=== PATIENT | female | born 1930 | race Caucasian/White ===

== ENCOUNTER 2020-01-16 18:53 | Emergency (ER) | payer MEDICARE ==
[2020-01-16] MEDS ORDERED: NS 0.9% 1000 ML** 1,000 ML IV ONE (18:54)
--- NOTE | 2020-01-16 19:05 | ED ---
Neurological HPI - HPI Summary HPI Summary: 89 y/o female presented to [facility] for a gildardo mercer called after a witnessed fall in her bathroom at 1805 with no LOC. Last known well at 1805. Pt shows right sided facial droop, right sided paralysis, and aphasia. Baseline A&Ox3. Gildardo mercer was called in the field by EMS. Per EMS, blood Glc was 97 en route to the ED. Pt arrived in the ED at 1853. Hx of HTN noted. Pt takes daily aspirin but did not take one today. Pt also takes quinapril, omeprazole, levothyroxine, and diltiazem. NIH 18. Pt is a level 5 caveat secondary to aphasia. - History of Current Complaint Stated Complaint: GILDARDO MERCER Time Seen by Provider: 01/16/20 18:54 Hx Obtained From: EMS Onset/Duration: Sudden Onset, Started minutes ago, Still Present Timing: Constant Neurological Deficit Location: Generalized - right side Character: Weak - right side, Other: - right side facial droop, aphasia Syncope Context: Witnessed Aggravating: Nothing Alleviating: Nothing - Allergy/Home Medications Allergies/Adverse Reactions: Allergies Allergy/AdvReac Type Severity Reaction Status Date / Time No Known Allergies Allergy Verified 02/21/15 17:38 Home Medications: Home Medications Unobtainable 01/16/20 [History Confirmed 01/16/20] PMH/Surg Hx/FS Hx/Imm Hx Cardiovascular History: Reports: Hx Hypertension Sensory History: Denies: Hx Legally Blind, Hx Deafness Opthamlomology History: Denies: Hx Legally Blind EENT History: Denies: Hx Deafness - Social History Occupation: Unemployed Lives: With Family Alcohol Use: None Substance Use Type: Reports: None Smoking Status (MU): Never Smoked Tobacco - Additional Comments History Additional Comments: Pt is a level 5 caveat secondary to aphasia. Review of Systems - ROS Summary Review of Systems Summary: Pt is a level 5 caveat secondary to aphasia. Neurological/Mental Status: Other - aphasia, right sided facial droop Positive: Weakness - right side All Other Systems Reviewed And Are Negative: No Physical Exam - Summary Physical Exam Summary: Constitutional: Well-developed, Well-nourished, Alert. (-) Distressed Skin: Warm, Dry HENT: Normocephalic; Atraumatic Eyes: Conjunctiva normal Neck: Musculoskeletal ROM normal neck. (-) JVD, (-) Nuchal rigidity Cardio: irregular, rate normal, Heart sounds normal; Intact distal pulses; Radial pulses are 2+ and symmetric. (-) Murmur Pulmonary/Chest wall: Effort normal. (-) Respiratory distress, (-) Wheezes, (-) Rales Abd: Soft. (-) Tenderness, (-) Distension, (-) Guarding, (-) Rebound Musculoskeletal: (-) Edema Neuro: Alert, PERRL, R sided facial droop, L gaze preference, severe dysarthria and aphasia, strength 0/5 R UE/LE, 5/5 L UE/LE Psych: deferred Triage Information Reviewed: Yes Vital Signs Reviewed: Yes Procedures - Sedation Patient Received Moderate/Deep Sedation with Procedure: No Diagnostics - Laboratory Result Diagrams: 01/16/20 19:17 01/16/20 19:17 Lab Statement: Any lab studies that have been ordered have been reviewed, and results considered in the medical decision making process. - Radiology CXR Radiology Interpretation Completed By: ED Physician Summary of Radiographic Findings: No acute process. This x-ray was reviewed and interpreted by the ED physician pending official read. - CT head CT Interpretation Completed By: Radiologist Summary of CT Findings: IMPRESSION: No acute intracranial abnormality. Chronic microvascular ischemic changes. ASSESSMENT: ASPECTS ([place] Stroke Program Early CT Score) is 10. This report was reviewed by the ED physician. 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 This report was reviewed by the ED physician. - EKG 2013 Cardiac Rate: NL EKG Rhythm: Atrial Fibrillation Summary of EKG Findings: An EKG at 2013 reveals afib at 87bpm, nml axis, nml intervals. No STEMI. No acute changes. ED physician has reviewed and interpreted this EKG. NIH Scale - NIH Scale Level of Consciousness: Alert/Keenly Responsive Ask Patient the Month and His/Her Age: Neither Correct/Aphasic Ask Pt to Open/Close Eyes and Diesel Mechanic Apprentice/Release Non-Paretic Hand: One Correctly Best Gaze (Only Horizontal Eye Movement): Forced Deviation Visual Field Testing: No Visual Loss Facial Paresis-Pt to Smile & Close Eyes or Grimace Symmetry: Partial Paralysis Motor Function - Right Arm: No Effort Against Paoli Motor Function - Left Arm: No Drift-Holds 10 Seconds Motor Function - Right Leg: No Effort Against Paoli Motor Function - Left Leg: No Drift-Holds 10 Seconds Limb Ataxia-Must be out of Proportion to Weakness Present: Absent Sensory (Use Pinprick to Test Arms/Legs/Trunk/Face): Normal Best Language (Describe Picture, Name Items): Severe Aphasia Dysarthria (Read Several Words): Unintelligible or Mute Extinction and Inattention: Inattention Total Score: 18 Re-Evaluation - Re-Evaluation First Eval Re-Evaluation Time: 19:23 Comment: Daughter confirmed hx prior was normal. Pt is on ASA daily but did not take one today. No known contraindications for TPA. Risks and benefits of TPA were discussed with daughter. Daughter would like TPA and is in agreement with transfer. Course/Dx - Course Course Of Treatment: 89 y/o F w hx hypothyroidism, HTN p/w R sided paralysis facial droop and aphasia. - Last known normal 1804, confirmed with daughter Azeb. On arrival, NIH stroke scale 18. CT head negative, CTA shows M1 occlusion. TPA ordered at 1926 and administered at 1945. [facility] consulted, recommend transfer for LVO. Daughter updated and aware of transfer. - Diagnoses Provider Diagnoses: Facial paralysis on right side, Left middle cerebral artery stroke, Afib During the Visit The Following Alert/Code Occurred: Code Mercer - Physician Notifications Discussed Care Of Patient With: Brian Hanson Time Discussed With Above Provider: 18:55 Instructed by Provider To: Other - At 185 Dr. Silva called [facility] for consult. At 1900 the transfer center informed Dr. Silva they will call back for consult. At 1937 the ED paged the transfer center again. At 1943 Dr. Hanson at [facility] accepted the pt for transfer. At 1957 [facility] called to go over the case. - Critical Care Time Critical Care Time: 30-74 min - Upon my evaluation, this patient had a high probability of imminent or life-threatening deterioration due to stroke which required my direct attention, intervention, and personal management. I have personally provided 60 minutes of critical care time exclusive of time spent on separately billable procedures. Time includes review of laboratory data, radiology results, discussion with consultants, and monitoring for potential decompensation. Interventions were performed as documented above. Discharge ED - Sign-Out/Discharge Documenting (check all that apply): Patient Departure - Discharge Plan Condition: Stable Disposition: TRANS HIGHER LVL OF CARE FAC Referrals: Gaby Evans MD [Primary Care Provider] - - Billing Disposition and Condition Condition: STABLE Disposition: Trans Higher Lvl of Care Fac - Attestation Statements Document Initiated by Sheba: Yes Documenting Scribe: Ho Cedeño Provider For Whom Sheba is Documenting (Include Credential): Jamal Silva MD Scribe Attestation: Ho Pappas, chiaraibed for Jamal Silva MD on 01/16/20 at 2019. Scribe Documentation Reviewed: Yes Provider Attestation: The documentation as recorded by the Ho campbell accurately reflects the service I personally performed and the decisions made by Jamal oliver MD Status of Scribhiwot Document: Viewed
[2020-01-16] MEDS ORDERED: Iodixanol* (CONTRAST) 320 MG/ML 100 ML SDV IV ONE (19:07)
--- OUTSIDE RECORDS SUMMARY | 2020-01-16 19:08 | XMS REPORT | Continuity of Care Document ---
:1930 External Reference #:[id number] Author Name Sera Thomas M.D. (transmitted by agent of provider Ashely Stephen) Address [address] [place] [address] Care Team Providers Name Role Phone Gaby Evans MD - Family Care Team Information Piano Mover Medicine Problems Active Problems Provider Date Localized, primary osteoarthritis Sera Thomas M.D. Onset: 03/19/2019 Social History Type Date Description Comments Sex Unknown ETOH Use Never used alcohol Tobacco Use Start: Unknown Patient has never smoked Smoking Status Reviewed: 12/15/19 Patient has never smoked Exercise Type/Frequency Does not exercise Allergies, Adverse Reactions, Alerts Active Allergies Reaction Severity Comments Date Ibuprofen diarrhea 03/19/2019 Naproxen diarrhea 03/19/2019 Medications Active Medications SIG Qnty Indications Ordering Date Provider Luiz daniels 1units Sera Thomas, 12/15/2019 [facility] 62" 135lbs M.D. severe left hip OA, severe b/L knee OA Compression Stockings 1units M25.561 Sera Thomas, 08/04/2019 M.D. [facility] Voltaren use 3 times a day 100gm M25.561 Sera Thomas, 03/19/2019 1% Gel as needed for M.D. pain Levothyroxine Sodium Take 1 Tablet By Unknown Mouth Every Day 50mcg Tablets Before Breakfast Quinapril HCL Take 1 Tablet By Unknown 40mg Mouth Every Day Tablets Diltiazem HCL ER Take 1 Tablet By Unknown Coated Beads Mouth Every Day 360mg Tablets ER 24HR Pravastatin Sodium Take 1 Tablet By Unknown 10mg Mouth Every Day Tablets AT 7Am On An Empty Stomach Aspirin Adult as needed Unknown 325mg Tablets Echinacea Goldenseal 240 mg 1 daily Unknown Plus Capsules Turmeric qd Unknown Powder Vitamin B Complex 1 by mouth every Unknown day Tablets Medications Administered in Office Medication SIG Qnty Indications Ordering Provider Date Depomedrol 40MG Sera Thomas M.D. 12/15/2019 Injection Synvisc Or Synvisc-One Injection 1 Sera Thomas M.D. 08/04/2019 MG Injection Synvisc Or Synvisc-One Injection 1 Sera Thomas M.D. 08/04/2019 MG Injection Synvisc Or Synvisc-One Injection 1 Sera hTomas M.D. 07/26/2019 MG Injection Synvisc Or Synvisc-One Injection 1 Sera Thomas M.D. 07/26/2019 MG Injection Synvisc Or Synvisc-One Injection 1 Sera Thomas M.D. 07/19/2019 MG Injection Synvisc Or Synvisc-One Injection 1 Sera Thomas M.D. 07/19/2019 MG Injection No Injection Sera Thomas M.D. 06/25/2019 Injection Depomedrol 40MG Sera Thomas M.D. 06/25/2019 Injection Depomedrol 40MG Sera Thomas M.D. 03/19/2019 Injection Depomedrol 40MG Sera Thomas M.D. 03/19/2019 Injection Immunizations Description No Information Available Vital Signs Date Vital Result Comment 12/15/2019 10:25am Height 62 inches 5'2" Weight 138.00 lb Heart Rate 84 /min BP Systolic 152 mmHg BP Diastolic 72 mmHg Body Temperature 97.3 F Pain Level 6 BMI (Body Mass Index) 25.2 kg/m2 08/04/2019 2:32pm Height 62 inches 5'2" Weight 135.00 lb Heart Rate 68 /min BP Systolic 148 mmHg BP Diastolic 72 mmHg Respiratory Rate 17 /min Body Temperature 98.8 F Pain Level 4 BMI (Body Mass Index) 24.7 kg/m2 Results Description No Information Available Procedures Date Code Description Status 12/15/2019 Inj/Aspir Major JT Or Bursa W/ US Completed 08/04/2019 Inject/Drain Joint/Bursa Major W/O US Completed 07/26/2019 Inject/Drain Joint/Bursa Major W/O US Completed 07/19/2019 Inject/Drain Joint/Bursa Major W/O US Completed Medical Devices Description No Information Available Encounters Type Date Location Provider Dx Diagnosis Office Visit 12/15/2019 [facility] Sera Thomas, M25.552 Pain in left hip 10:15a at [facility] M16.12 Unilateral primary osteoarthritis, left hip Office Visit 08/04/2019 2:30p [facility] Sera Thomas, M25.561 Pain in right at [facility].Echo knee M25.562 Pain in left knee M17.0 Bilateral primary osteoarthritis of knee R60.0 Localized edema M79.662 Pain in left lower leg Assessments Date Code Description Provider 12/15/2019 M25.552 Pain in left hip Sera Thomas M.D. 12/15/2019 M16.12 Unilateral primary osteoarthritis, left hip Sera Thomas M.D. 08/04/2019 M25.561 Pain in right knee Sera Thomas M.D. 08/04/2019 M25.562 Pain in left knee Sera Thomas M.D. 08/04/2019 M17.0 Bilateral primary osteoarthritis of knee Sera Thomas M.D. 08/04/2019 R60.0 Localized edema Sera hTomas M.D. 08/04/2019 M79.662 Pain in left lower leg Sera Thomas M.D. 07/26/2019 M25.561 Pain in right knee Sera Thomas M.D. 07/26/2019 M25.562 Pain in left knee Sera Thomas M.D. 07/26/2019 M17.0 Bilateral primary osteoarthritis of knee Sera Thomas M.D. 07/19/2019 M25.561 Pain in right knee Sera Thomas M.D. 07/19/2019 M25.562 Pain in left knee Sera Thomas M.D. 07/19/2019 M17.0 Bilateral primary osteoarthritis of knee Sera William, M.D. Plan of Treatment 12/15/2019 - Sera Thomas M.D.M25.552 Pain in left hipFollow up:Follow up: As kaybqmC62.12 Unilateral primary osteoarthritis, left hip Functional Status Description No Information Available Mental Status Description No Information Available Referrals Description No Information Available
--- OUTSIDE RECORDS SUMMARY | 2020-01-16 19:08 | XMS REPORT | Summary of Care ---
:1930 Author Organization [facility] Address [address] [facility] [place] [address] Care Team Providers Name Role Phone Gaby Evans Primary Care Provider Reason for Visit Reason Comments Hypertension Hypothyroidism Encounter Details Date Type Department Care Team Description 01/11/2020 Office Visit [facility] Nathan Essential hypertension ( Primary Dx); Practice MD Gaby Acquired hypothyroidism; [address] [facility] Primary osteoarthritis involving multiple joints [place], [place] [id number] [place] [address] [phone] Allergies Active Allergy Reactions Severity Noted Date Comments Statins Musculoskeletal 2014 myalgia documented as of this encounter (statuses as of 01/11/2020) Medications Medication Sig Dispensed Refills Start Date End Date Status ECHINACEA PO Take by 0 Active mouth. acetaminophen Take 500 mg 0 Active (TYLENOL) 325 MG by mouth Oral Tab NEEDED. Diltiazem HCl Take 1 Tab 90 Tab 1 10/12/2019 Active Coated Beads 360 MG by mouth Oral TABLET SR 24 DAILY. HR levothyroxine Take 1 Tab 90 Tab 1 10/12/2019 Active (SYNTHROID) 50 MCG by mouth Oral Tab BEFORE BREAKFAST. Omeprazole 20 MG Take 1 Tab 90 Tab 1 10/27/2019 Active Oral Tab by mouth ECIndications: DAILY. Peptic ulcer aspirin 325 MG Oral Take 325 mg 0 Active Tab by mouth DAILY NEEDED. quinapril Take 1 Tab 90 Tab 1 01/11/2020 Active (ACCUPRIL) 40 MG by mouth Oral DAILY. TabIndications: Essential hypertension quinapril TAKE 1 90 Tab 1 06/29/2019 Discontinued (ACCUPRIL) 40 MG TABLET BY 0 (Reorder) Oral Tab MOUTH EVERY DAY documented as of this encounter (statuses as of 01/11/2020) Active Problems Problem Noted Date Hyperlipidemia 06/09/2016 Hypothyroidism 06/09/2016 Essential hypertension 01/05/2009 DJD 01/05/2009 Osteopenia AI (aortic insufficiency) Overview: mild, ECHO- 10/16 documented as of this encounter (statuses as of 01/11/2020) Resolved Problems Problem Noted Date Resolved Date White coat hypertension 12/17/2010 06/09/2016 Overview: Replaced inactive diagnosis Hypertension 01/05/2009 06/09/2016 documented as of this encounter (statuses as of 01/11/2020) Immunizations Name Administration Dates Next Due Influenza Vaccine 65 Yrs + 08/30/2019 Influenza Vaccine Whole 09/09/2007 PNEUMOCOCCAL POLYSACCHARIDE VACCINE 09/09/2007 Pneumococcal Conjugate(13 Valent) 12/23/2014 TDAP Vaccine 02/21/2015 documented as of this encounter Social History Tobacco Use Types Packs/Day Years Used Date Never Smoker Smokeless Tobacco: Never Used Alcohol Use Drinks/Week oz/Week Comments No 0 Standard drinks or equivalent 0.0 Sex Assigned at Date Recorded Not on file documented as of this encounter Last Filed Vital Signs Not on filedocumented in this encounter Patient Instructions Patient InstructionsGaby Evans MD - 01/11/2020 3:00 PM EDT1. Schedule non fasting blood tests in 1-2 months documented in this encounter Progress Notes Gaby Evans MD - 01/11/2020 3:00 PM EDT Patient: David Jimenez Date of Service: 01/11/2020 In our efforts to minimize the spread of COVID-19 in our community, amongst our patients, healthcarestaff and providers, we have implemented virtual visits with our patients. No vital signs, physical exam or in-office diagnostics were completed during this visit. These items may be accomplished during subsequent visits. Subjective: Dvaid Jimenez is a 89-y.o. female who presents for F/U Reports good control or HTN Home measurements: 130-140/60-70. Occasional readings - 149 systolic Feels well. Fair appetite. No weight loss Currently stays with her daughter in a private house Continues to have pains in both knees, R hip due to severe degenerative joint disease Fair control of the pain with Steroid injections Past Medical History: Diagnosis Date ? Hypertension 01/05/2009 ? AI (aortic insufficiency) mild, ECHO- 10/16 ? DJD 01/05/2009 ? Hyperlipidemia 01/05/2009 ? Osteopenia Outpatient Medications as of 01/11/2020 Medication Sig Dispense Refill ? acetaminophen (TYLENOL) 325 MG Oral Tab Take 500 mg by mouth NEEDED. ? Diltiazem HCl Coated Beads 360 MG Oral TABLET SR 24 HR Take 1 Tab by mouth DAILY. 90 Tab 1 ? ECHINACEA PO Take by mouth. ? levothyroxine (SYNTHROID) 50 MCG Oral Tab Take 1 Tab by mouth BEFORE BREAKFAST. 90 Tab 1 ? Omeprazole 20 MG Oral Tab EC Take 1 Tab by mouth DAILY. 90 Tab 1 No current facility-administered medications on file as of 01/11/2020. Allergies Allergen Reactions ? Statins Musculoskeletal myalgia Review of Systems: All remaining review of systems was negative. Objective: <Not on file> General appearance: alert, well appearing, and in no distress. TSH - normal, improved Component Latest Ref Rng & Units 12/14/2019 12/14/2019 12:35 PM 12:35 PM TSH 0.47 - 4.68 uIu/ml 4.65 Free T4 0.8 - 2.2 NG/DL 1.1 Patient advised on tests results ICD-9-CM ICD-10-CM 1. Essential hypertension Controlled 401.9 I10 quinapril (ACCUPRIL) 40 MG Oral Tab COMPREHENSIVE METABOLIC PANEL 2. Acquired hypothyroidism Improved control 244.9 E03.9 THYROID STIMULATING HORMONE FREE T4 3. Primary osteoarthritis involving multiple joints Continue steroid injections 715.09 M15.0 Patient Instructions 1. Schedule non fasting blood tests in 1-2 months Author: Gaby Evans MD documented in this encounter Plan of Treatment Name Type Priority Associated Diagnoses Order Schedule COMPREHENSIVE METABOLIC Lab Routine Essential hypertension Expected: 2019 PANEL (Approximate), Expires: 01/10/2021 THYROID STIMULATING Lab Routine Acquired hypothyroidism Expected: 2019 HORMONE (Approximate), Expires: 01/10/2021 FREE T4 Lab Routine Acquired hypothyroidism Expected: 01/11/2020 (Approximate), Expires: 01/10/2021 Health Maintenance Due Date Last Done Comments HIV SCREENING 1945 DEPRESSION SCREENING 04/15/2020 04/15/2019 FALL RISK ASSESSMENT 04/21/2020 04/21/2019, 04/21/2019 ZOSTER IMMUNIZATION SERIES (1 08/30/2020 Postponed from 1981 of 2) (Vaccine not available) DTaP/Tdap/Td Vaccines (2 - 02/21/2025 02/21/2015 Tdap) PNEUMOCOCCAL 65+YRS Completed 12/23/2014, 09/09/2007 INFLUENZA VACCINE Completed 08/30/2019, 09/09/2007 HEPATITIS A IMMUNIZATION Aged Out No longer eligible based SERIES on patient's age to complete this topic HPV IMMUNIZATION SERIES Aged Out No longer eligible based on patient's age to complete this topic MENINGOCOCCAL VACCINE IMM Aged Out No longer eligible based on patient's age to complete this topic documented as of this encounter Goals Goal Patient Goal Associated Recent Patient-Stated? Author Type Problems Progress Blood Pressure Blood Pressure Hypertension 158/70 No Nathan, < 140/90 (08/30/2019 Gaby, 2:57 PM EST) Note: Hypertension Care Plan Based on the patient's clinical history and according to JNC 8 guidelines target blood pressure goal is less than 140/90. Based on the patient's last blood pressure of BP: 162/88 mmHg the patient is at above goal. Better readings at home As your provider, it is important that I advise you regarding: your current medications and help you with any challenges you may face taking your medications as directed (ex. instructions, cost, side effects, and interactions). Important lifestyle changes: exercise, diet and dietary sodium reduction your clinical goals and how you can achieve success: exercise plan and diet improvements medication management: adjusted medications as appropriate patient education/self-management tools provided: Yes To successfully manage my Hypertension I will: monitor my blood pressure daily, understanding that my goal is less than 140/ 90 per my healthcare provider's recommendation. I will schedule an appointment with my provider if consistent abnormal readings greater than 160/100. take medications every day as prescribed by my healthcare provider and if unable to take them I will discuss with my provider. monitor for symptoms of chest pain, chest tightness/pressure, irregular heartbeat, persistent dizziness, radiating arm pain, and neck or jaw pain. If any of these symptoms are noticed I will seek medical attention immediately by calling 911 exercise/walk 15 minutes 5 day(s) per week. If I experience chest pain, chest tightness, or shortness of breath, I will seek medical attention immediately. follow a diet rich in fruits, vegetables, and low-fat dairy products with reduced content of saturated & total fat. I will reduce my sodium intake daily. An example is the DASH diet. To obtain more information please refer to the DASH Eating Plan listed in Educational Resources. record my blood pressure results. [email or web address] is safe and secure way for you to do this in your medical record online. limit alcohol consumption. For men two drinks per day and women one drink per day. if currently smoking, will discuss how to quit smoking with my healthcare provider and work towards quitting. Educational Resources: National Heart, Lung, & Blood [place] http://nhlbi.nih.gov/hbp/index.html The DASH Diet Eating Plan http://www.nhlbi.nih.gov/health/health-topics/ topics/dash/ Academy of Nutrition & DIetetics http://eatright.org National Smoking Cessation Site http://smokefree.gov Blood Pressure < Blood Pressure 158/70 (08/30/2019 Gaby Armstrong, 150/90 2:57 PM EST) Note: This is an individualized treatment (blood pressure) goal for David Jimenez: Displayed above (on the left) is your goal for blood pressure control. Your most recent blood pressure is also shown above, on the right. You should try to achieve blood pressures that are lower than your goal listed above (on the left). Take all prescribed medications as Self-management Gaby Armstrong MD directed Note: This is an individualized self-management goal for David Jimenez: Please take all prescribed medications as directed. 1. Do not skip doses. If you cannot afford your medications, talk with your doctor. 2. Use a pill reminder system such as a pill box if needed. Your pharmacist can help you with this. 3. Contact your Pharmacy 5 days before your medication runs out. If you cannot take your medications for any reasons, talk with your doctor. 4. Please bring all of your medication bottles and inhalers (or a list of all your medications/inhalers) with you to every visit. Potential barriers to meeting all of your care plan goals will continue to be addressed on an ongoing basis. documented as of this encounter Results Not on filedocumented in this encounter Visit Diagnoses Diagnosis Essential hypertension Unspecified essential hypertension Acquired hypothyroidism Unspecified hypothyroidism Primary osteoarthritis involving multiple joints documented in this encounter Insurance Payer Benefit Plan / Subscriber ID Effective Dates Phone Address Type Group MEDICARE MEDICARE PART A [id number] 1996-Present Medicare & B [facility] [employer] [id number] 2016-Present [facility] [employer] Guarantor Name Account Type Relation to Date of Phone Billing Patient Address David Jimenez Personal/Family 1930 [address] (Home) [place] [phone] [place], [place] (Work) [id number] documented as of this encounter
--- OUTSIDE RECORDS SUMMARY | 2020-01-16 19:08 | XMS REPORT | Continuity of Care Document ---
:1930 External Reference #:[id number] Author Name Sera Thomas M.D. (transmitted by agent of provider Shivani Guerra) Address [address] [place] [address] Care Team Providers Name Role Phone Gaby Evans MD - Family Care Team Information T[employer] Medicine Problems Active Problems Provider Date Localized, [...] Provider Luiz daniels 1units Sera Thomas, 12/15/2019 [facility] 62" 135lbs M.D. severe left hip OA, severe b/L knee OA Compression Stockings 1units M25.561 Sera Thomas, 08/04/2019 M.D. [facility] Voltaren use 3 times a day 100gm [...] Medication SIG Qnty Indications Ordering Provider Date Synvisc Or Synvisc-One Injection 1 Sera Thomas [...] 07/19/2019 Inject/Drain Joint/Bursa Major W/O US Completed 06/25/2019 Inj/Aspir Major JT Or Bursa W/ US Completed Medical Devices Description No Information Available Encounters Type Date Location Provider Dx Diagnosis Office Visit 12/15/2019 [facility] Sera Thomas, M25.552 Pain in left hip 10:15a at [place] M.DKane M16.12 Unilateral primary osteoarthritis, left hip Office Visit 08/04/2019 2:30p [facility] Sera Thomas, M25.561 Pain in right at [place] M.DKane knee M25.562 Pain in left knee M17.0 Bilateral primary osteoarthritis of knee R60.0 Localized edema M79.662 Pain in left lower leg Office Visit 06/25/2019 9:30a [facility] Sera Thomas, M25.561 Pain in right at [facility].DKane knee M25.562 Pain in left knee M17.0 Bilateral primary osteoarthritis of knee M25.552 Pain in left hip M16.12 Unilateral primary osteoarthritis, left hip Assessments Date Code Description Provider 12/15/2019 M25.552 Pain in left hip Sera Thomas M.D. 12/15/2019 M16.12 Unilateral primary osteoarthritis, left hip Sera Thomas M.D. 08/04/2019 M25.561 Pain in right knee Sera Thomas M.D. 08/04/2019 M25.562 Pain in left knee Sera Thomas M.D. 08/04/2019 M17.0 Bilateral primary osteoarthritis of knee Sera Thomas M.D. 08/04/2019 R60.0 Localized edema Sera Thomas M.D. 08/04/2019 M79.662 Pain in left lower [...] primary osteoarthritis of knee Sera Thomas M.D. 06/25/2019 M25.561 Pain in right knee Sera Thomas M.D. 06/25/2019 M25.562 Pain in left knee Sera Thomas M.D. 06/25/2019 M17.0 Bilateral primary osteoarthritis of knee Sear Thomas M.D. 06/25/2019 M25.552 Pain in left hip Sera Thomas M.D. 06/25/2019 M16.12 Unilateral primary osteoarthritis, left hip Sera Thomas M.D. Plan of Treatment 12/15/2019 - Sera Thomas M.D.M25.552 Pain in left hipFollow up:Follow up: As nepiseI22.12 Unilateral primary osteoarthritis, left hip Functional Status Description No Information Available Mental Status Description No Information Available Referrals Description No Information Available
[2020-01-16 19:26] LABS: ABS Basophils 0.1 10^3/ul (0-0.2); ABS Eosinophils 0.1 10^3/ul (0-0.6); ABS Lymphocytes 1.3 10^3/ul (1.0-4.8); ABS Monocytes 0.6 10^3/ul (0-0.8); ABS Neutrophils 5.5 10^3/ul (1.5-7.7); Eosinophil % 1.3 %; Hematocrit 39 % (35-47); Hemoglobin 13.2 g/dL (12.0-16.0); Lymphocyte % 17.4 %; Mean Corpuscular HGB Conc 34 g/dL (31-36); Mean Corpuscular Hemoglobin 31 pg (27-31); Mean Corpuscular Volume 92 fL (80-97); Mean Platelet Volume 9.6 fL (7.4-10.4); Platelet Count 315 10^3/uL (150-450); Red Blood Count 4.28 10^6 /uL (3.70-4.87); Red Cell Distribution Width 14 % (10-15); White Blood Count 7.6 10^3/uL (3.5-10.8)
[2020-01-16] MEDS ORDERED: Alteplase* 100 MG VIAL IV ONE ×2 (19:27)
[2020-01-16 19:32] LABS: Activated Partial Thrombo Time 30.9 seconds (26.0-38.0); INR 0.96 (0.82-1.09)
[2020-01-16 19:45] LABS: Albumin 3.5 g/dL (3.2-5.2); Albumin/Globulin Ratio 1.3 (1-3); BUN/Creatinine Ratio 26.3 (8-20); Calcium 8.6 mg/dL (8.6-10.3); EGFR African American 81.9 (>60); EGFR Non-African American 67.7 (>60); Globulin 2.7 g/dL (2-4); HDL Cholesterol 77.6 mg/dL; Potassium 4.3 mmol/L (3.5-5.0); Total Bilirubin 0.4 mg/dL (0.2-1.0); Total Protein 6.2 g/dL (6.4-8.9)
[2020-01-16 19:47] LABS: Troponin I 0.01 ng/mL (<0.03)
[2020-01-16 20:49] VITALS: BP 171/81
== END 2020-01-16 20:50 | disposition short-term general hospital (02) ==
LOC: ED 18:53
DX: I63.512 Cerebral infarction due to unspecified occlusion or stenosis of left middle cerebral artery (principal); G51.0 Bell's palsy; I48.91 Unspecified atrial fibrillation; R53.1 Weakness; I10 Essential (primary) hypertension; Z79.82 Long term (current) use of aspirin
CPT/HCPCS: 36415; 70450; 70496; 70498; 71045; 80053; 80061; 83605; 84484; 85025; 85610; 85730; 93005; 96361; 96365; 96375; 99285; J2997; Q9967